=== PATIENT | female | born 1975 | race Hispanic/Latino ===

== ENCOUNTER 2018-11-13 16:09 | Inpatient (IN) | payer OTHER | END 2018-11-15 18:30 | disposition home or self-care (01) | LOC: EDH 16:09 → EDHIP 22:07 → 3BH 23:01 | DX: K81.9 Cholecystitis, unspecified (principal) ==

== ENCOUNTER 2019-03-28 19:38 | Emergency (ER) | payer OTHER ==
[~2019-03-28 19:38] MED LIST: ERGO500014 PO; MVIT PO; OMEP-298 PO
[2019-03-28] MEDS ORDERED: DEXAMETHASONE SOD PHOSPHATE 10MG/ML 1ML VIAL ONE (19:59)
[2019-03-28] MEDS ORDERED: ORPHENADRINE CITRATE 30 MG/ML ML ONE (20:00)
[2019-03-28] MEDS ORDERED: KETOROLAC TROMETHAMINE 60 MG/2 ML VIAL ONE (20:00)
[2019-03-28] MEDS ORDERED: LIDOCAINE 5% TOPICAL PATCH TP ONE (20:01)
== END 2019-03-28 20:46 | disposition home or self-care (01) ==
LOC: EDH 19:38
DX: S33.5XXA Sprain of ligaments of lumbar spine, initial encounter (principal); Z98.890 Other specified postprocedural states; Z72.0 Tobacco use; X50.1XXA Overexertion from prolonged static or awkward postures, initial encounter; Y93.89 Activity, other specified; Y92.89 Other specified places as the place of occurrence of the external cause; Y99.8 Other external cause status
CPT/HCPCS: 96372 ×3; 99284; J1100; J1885; J2360